=== PATIENT | female | born 1990 | race Two or more races ===

== ENCOUNTER 2016-11-11 15:01 | Inpatient (IN) | payer BC, MEDICAID ==
[2016-11-11] MEDS ORDERED: RINGERS SOLUTION,LACTATED 1,000 ML IV PRN (15:10)
[2016-11-11] MEDS ORDERED: RINGERS SOLUTION,LACTATED 1,000 ML IV ONE (15:10)
[2016-11-11 15:30] LABS: APPEARANCE,URINE SLIGHTLY-CLOUDY; BILIRUBIN,URINE NEGATIVE (NEGATIVE); GLUCOSE, URINE NEGATIVE (NEGATIVE); KETONES,URINE TRACE mg/dL (NEGATIVE); LEUKOCYTE ESTERASE,URINE NEGATIVE (NEGATIVE); NITRITE,URINE NEGATIVE (NEGATIVE); PROTEIN,URINE 30 mg/dL (NEGATIVE); URINE SPECIFIC GRAVITY 1.032
[2016-11-11 15:38] LABS: ABSOLUTE BASOPHILS # (AUTO) 0.1 10^3/uL (0.0-0.2); ABSOLUTE EOSINOPHILS # (AUTO) 0.2 10^3/uL (0.0-0.6); ABSOLUTE MONOCYTES (AUTO) 0.9 10^3/uL (0.1-1.4); ABSOLUTE NEUT (AUTO) 10.7 10^3/uL (1.7-8.2); BASOPHILS % (AUTO) 0.5 % (0-2); EOSINOPHILS % (AUTO) 1.4 % (0-6); HEMATOCRIT 34.8 % (36.0-47.0); HEMOGLOBIN 11.5 g/dL (12.0-15.5); HGB HCT DIFFERENCE -0.3; LYMPHOCYTES % (AUTO) 20.2 % (13-45); MEAN CORPUSCULAR HEMOGLOBIN 27.1 pg (27.0-33.4); MEAN CORPUSCULAR VOLUME 82 fl (80-97); MONOCYTES % (AUTO) 6.1 % (3-13); RED BLOOD COUNT 4.25 10^6/uL (3.72-5.28); RED CELL DISTRIBUTION WIDTH 15.4 % (11.5-14.0); SEGMENTED NEUTROPHILS % (AUTO) 71.8 % (42-78); WHITE BLOOD COUNT 14.9 10^3/uL (4.0-10.5)
[2016-11-11] MEDS ORDERED: CLINDAMYCIN 900 MG/D5W RTU 50 ML IV ONE (15:42)
[2016-11-11 15:45] LABS: URINE METHADONE SCREEN NEGATIVE; URINE OPIATES LOW NEGATIVE; URINE PHENCYCLIDINE SCREEN NEGATIVE
[2016-11-11 16:08] LABS: URINE BARBITURATES SCREEN NEGATIVE
[2016-11-11] MEDS ORDERED: OXYTOCIN/NORMAL SALINE 20 UNIT/1,000 ML RTUINJ ONE ×2 (16:16→17:19)
[2016-11-11] MEDS ORDERED: OXYTOCIN/NORMAL SALINE 1,000 ML IV PRN ×2 (16:27→19:58)
[2016-11-11] MEDS ORDERED: LIDOCAINE 1% INJ-PF (10 MG/ML) 30 ML SDV ONE (17:19)
[2016-11-11] MEDS ORDERED: MISOPROSTOL 0.2 MG TABLET ONE (17:19)
[2016-11-11] MEDS ORDERED: ACETAMINOPHEN WITH CODEINE #3 TABLET PO PRN ×2 (19:58)
[2016-11-11] MEDS ORDERED: MEASLES,MUMPS&RUBELLA VACC/PF 0.5 ML VIAL SUBCUT PRN (19:58)
[2016-11-11] MEDS ORDERED: BENZOCAINE/MENTHOL AEROSOL SPRAY 56 ML TOP PRN (19:58)
[2016-11-11] MEDS ORDERED: ZOLPIDEM TARTRATE 5 MG TABLET PO PRN (19:58)
[2016-11-11] MEDS ORDERED: DIPH/PERTUSS(ACELL)/TETANUS VAC/PF 0.5 ML SYR (>=10YO) IM PRN (19:58)
[2016-11-11] MEDS ORDERED: DIBUCAINE 1% OINTMENT 28 GM TP PRN (19:58)
[2016-11-11] MEDS ORDERED: IBUPROFEN 800 MG TABLET ONE (19:59)
--- NOTE | 2016-11-11 21:28 | Delivery Summary ---
Del Sum A-C Datetime Report Generated by CPN: 11/11/2016 21:28 DELIVERY PERSONNEL DELIVERY PERSONNEL: ,[id number] Delivery Doctor:: Marcia Crouch MD Labor and Delivery Nurse:: Adrienne Valverde RN Neonatal Nurse Practitioner:: Katlyn Johnson ORIENTATION AND MOBILITY SPECIALIST Nursery Nurse:: Suri Hare RN Nursery Nurse:: Monica Payne RN Production Bow Maker/ROBSON: Daksha Perez, ST MATERNAL INFORMATION Delivery Anesthesia: None Medications After Delivery: Pitocin Bolus-Please Comment; Pitocin Drip 20 Units/1000ml NSS Estimated Blood Loss (ml): 200 Maternal Complications: Premature Rupture of Membranes Other Maternal Complications: PTL LABOR SUMMARY EDC: 12/20/2016 00:00 No. Babies in Womb: 1 Attempted: No Labor Anesthesia: None LABOR INFORMATION Reason for Induction: Not Applicable Onset of Labor: 11/11/2016 14:40 Complete Dilatation: 11/11/2016 19:17 Oxytocin: Augmentation Group B Beta Strep: unknown Antibiotics # of Doses: 1 Antibiotics Time of Last Dose: 1547 Name of Antibiotic Given: Clindamycin Steroids Given: None Reason Steroids Not Administered: Not Applicable MEMBRANES Membranes Rupture Method: Spontaneous Rupture of Membranes: 11/11/2016 14:40 Length of Rupture (hr): 4.90 Amniotic Fluid Color: Clear Amniotic Fluid Amount: Large Amniotic Fluid Odor: Normal STAGES OF LABOR Stage 1 hr: 4 Stage 1 min: 37 Stage 2 hr: 0 Stage 2 min: 17 Stage 3 hr: 0 Stage 3 min: 2 Total Time in Labor hr: 4 Total Time in Labor min: 56 VAGINAL DELIVERY Laceration Extension: Second Degree Laceration Type: Perineal; Vaginal Laceration Repair Note: 2-0 chromic repair in normal fashion Sponge Count Correct: N/A CSECTION DELIVERY Primary Indication: N/A Secondary Indication: N/A CSection Incidence: N/A Labor: N/A Elective: N/A CSection Incision: N/A BABY A INFORMATION Delivery Date/Time: 11/11/2016 19:34 Method of Delivery: Vaginal Born in Route : No : N/A Forceps: N/A Vacuum Extraction: N/A Shoulder Dystocia : No PRESENTATION/POSITION BABY A Presentation: Cephalic Cephalic Presentation: Vertex Vertex Position: Left Occipital Anterior Breech Presentation: N/A PLACENTA INFORMATION BABY A Placenta Delivery Time : 11/11/2016 19:36 Placenta Method of Delivery: Spontaneous Placenta Status: Delivered SCORES BABY A Heart Rate 1 min: >100 bpm Resp Effort 1 min: Good Cry Reflex Irritability 1 min: Cough or Sneeze or Pulls Away Muscle Tone 1 min: Active Motion Color 1 min: Blue/Pale Resuscitation Effort 1 min: Tactile Stimulation SCORE 1 MIN: 8 Heart Rate 5 min: >100 bpm Resp Effort 5 min: Good Cry Reflex Irritability 5 min: Cough or Sneeze or Pulls Away Muscle Tone 5 min: Active Motion Color 5 min: Body [place], Extremities Blue Resuscitation Effort 5 min: Tactile Stimulation SCORE 5 MIN: 9 INFANT INFORMATION BABY A Gestational Age at Delivery: 34.3 Gestational Status: Late - 34- 36.6 Weeks Outcome : Liveborn Condition : Stable Infant Sex: Male IDENTIFICATION BABY A Verification Date/Time: 11/11/2016 19:49 ID Band Number: [id number] Mother's Name Verified: Yes Infant RN Verifying Infant: B Stafford, RN Additional Verifying Personnel: S Lattiebealexandraeir, Rn WEIGHT/LENGTH BABY A Infant Birthweight (gm): 2638 Weight (lb): 5 Weight (oz): 13 Length (in): 18.00 Infant Length (cm): 45.72 CORD INFORMATION BABY A No. Cord Vessels: 3 Nuchal Cord : Around Neck x1, Loose Cord Blood Taken: Yes-For Storage (Mom's Blood type +) Suction: None ASSESSMENT BABY A Skin to Skin: Yes Skin to Skin Time (min): 10 Infant Care By: D Matter, ORIENTATION AND MOBILITY SPECIALIST; A ILSA Payne; Christa Hare RN Transferred To: NICU BABY B INFORMATION : N/A SIGNATURES Signature: with User ID: [email or web address]
--- NOTE | 2016-11-11 21:52 | Admission Physical ---
Datetime Report Generated by CPN: 11/11/2016 21:52 CURRENT ADMISSION Chief Complaint: Suspected Ruptured Membranes Indication for Induction: PROM Admit Plan: Admit to Unit; Initiate Labor Induction Protocol ALLERGIES Medication Allergies: Yes Medication Allergies: Penicillins/Hives (11/11/2016) Latex: No Latex Allergies OBSTETRICAL HISTORY EDC: 12/20/2016 00:00 : 2 Para: 0 Term: 0 : 0 Ectopic: 0 Livin Cesareans: 0 VBACs: 0 Multiple Births: 0 Gestational Diabetes: Yes SEE RECORDS Alcohol: No Marijuana : No Cocaine: No Other Illicit Drugs: No Cigarettes: Current Everyday Smoker. [id number] MEDICAL HISTORY Diabetes: Yes Diabetes Type: Gestational Diabetes Hosp/Surgery: Yes Abnormal Pap Smear: Yes Medical History Comments: abnl pap, gall bladder removed 2008, LEEP x2, endocervical curettage INFECTIOUS HISTORY Chlamydia: Yes HPV: Yes Infectious History Comments: Chlamydia 2012 PHYSICAL EXAM General: Normal HEENT: Normal Neurologic: Normal Thyroid: Normal Heart: Normal Lungs: Normal Breast: Normal Back: Normal Abdomen: Normal Genitourinary Exam: Normal Extremities: Normal DTRs: Normal Pelvic Type: Adequate Vital Signs: Reviewed VAGINAL EXAM Dilatation: 1 Effacement: 90 Station: -1 MEMBRANES Pooling: Positive Membranes: Ruptured Amniotic Fluid Color: Clear FETUS A EGA: 34.3 Monitoring: External US FHR- Baseline: 130 Variability: Moderate 6-25bpm Accelerations: 10X10 Decelerations: None FHR Category: Category I Estimated Weight (gm): 2900 Presentation: Vertex Admit Comment: previous LEEP. PPROM. induce with Pitocin PLANS FOR LABOR AND DELIVERY Labor and Delivery: None Pain Management: None Feeding Preference: Breast Benefit of Breast Feed Discussed: Yes Circumcision: Yes INFORMED CONSENT Signature: with User ID: [email or web address]
[2016-11-11] MEDS ORDERED: CLINDAMYCIN 900 MG/D5W RTU 50 ML IV SCH (22:00)
[2016-11-11] MEDS: IBUPROFEN 800 MG TABLET PO SCH (23:26)
[2016-11-12] MEDS: IBUPROFEN 800 MG TABLET PO SCH ×3 (05:46→23:32)
[2016-11-12 06:26] LABS: HEMATOCRIT 32.4 % (36.0-47.0); HEMOGLOBIN 10.6 g/dL (12.0-15.5); HGB HCT DIFFERENCE -0.6; MEAN CORPUSCULAR HEMOGLOBIN 26.8 pg (27.0-33.4); MEAN CORPUSCULAR HGB CONC 32.7 g/dL (32.0-36.0); MEAN CORPUSCULAR VOLUME 82 fl (80-97); RED BLOOD COUNT 3.95 10^6/uL (3.72-5.28); RED CELL DISTRIBUTION WIDTH 15.4 % (11.5-14.0); WHITE BLOOD COUNT 18.6 10^3/uL (4.0-10.5)
--- NOTE | 2016-11-12 08:45 | PDOC PROGRESS REPORT ---
Subjective-OB Subjective: Post Delivery Day: 1 26 year old. Denies any needs at this time, states lochia is stable, pain well controlled, voiding without difficulty. Physical Exam (OB) Vital Signs: Temp Pulse Resp BP Pulse Ox 98.0 F 85 18 109/70 100 11/12/16 08:13 11/12/16 08:13 11/12/16 08:13 11/12/16 08:13 11/12/16 08:13 Intake & Output 11/11/16 11/12/16 11/13/16 06:59 06:59 06:59 Weight 87.35 kg - PIH/Pre-Eclampsia Clonus: Negative Headache: Absent Epigastric Pain: No Visual Changes: No - Lochia Lochia Amount: Small 10-25 ml Lochia Color: Rubra/Red - Abdomen Description: Soft, Round Fundal Description: Firm Fundal Height: u/u - u/2 Objective-Diagnostic Laboratory: 11/12/16 06:05 11/11/16 11/11/16 11/11/16 15:10 15:21 15:21 WBC 14.9 H RBC 4.25 Hgb 11.5 L Hct 34.8 L MCV 82 MCH 27.1 MCHC 33.0 RDW 15.4 H Plt Count 235 Seg Neutrophils % 71.8 Lymphocytes % 20.2 Monocytes % 6.1 Eosinophils % 1.4 Basophils % 0.5 Absolute Neutrophils 10.7 H Absolute Lymphocytes 3.0 Absolute Monocytes 0.9 Absolute Eosinophils 0.2 Absolute Basophils 0.1 Urine Color YELLOW Urine Appearance SLIGHTLY-CLOUDY Urine pH 5.0 Ur Specific [place] 1.032 Urine Protein 30 H Urine Glucose (UA) NEGATIVE Urine Ketones TRACE H Urine Blood NEGATIVE Urine Nitrite NEGATIVE Ur Leukocyte Esterase NEGATIVE Urine WBC (Auto) 2 Urine RBC (Auto) 2 Blood Type A POSITIVE Antibody Screen NEGATIVE 11/12/16 06:05 WBC 18.6 H RBC 3.95 Hgb 10.6 L Hct 32.4 L MCV 82 MCH 26.8 L MCHC 32.7 RDW 15.4 H Plt Count 205 Seg Neutrophils % Lymphocytes % Monocytes % Eosinophils % Basophils % Absolute Neutrophils Absolute Lymphocytes Absolute Monocytes Absolute Eosinophils Absolute Basophils Urine Color Urine Appearance Urine pH Ur Specific [place] Urine Protein Urine Glucose (UA) Urine Ketones Urine Blood Urine Nitrite Ur Leukocyte Esterase Urine WBC (Auto) Urine RBC (Auto) Blood Type Antibody Screen Assessment and Plan(PN) - Assessment and Plan (1) Vaginal delivery Is this a current diagnosis for this admission?: Yes (2) Type 2 diabetes mellitus Qualifiers: Diabetes mellitus complication status: without complication Diabetes mellitus middle or intermediate school principal insulin use: unspecified mcfp insulin use status Qualified Code(s): E11.9 - Type 2 diabetes mellitus without complications Is this a current diagnosis for this admission?: YesPlan: metformin - Time Spent with Patient Time with patient: Less than 15 minutes Critical Time spent with patient: Less than 15 minutes Medications reviewed and adjusted accordingly: Yes - Disposition Anticipated Discharge: Home Within: within 24 hours
[2016-11-12] MEDS: FERROUS SULFATE 325 MG TABLET PO SCH ×2 (10:44→17:44)
[2016-11-12] MEDS: SENNOSIDES/DOCUSATE 8.6-50 MG 1 EACH TABLET PO SCH (10:44)
[2016-11-12] MEDS: PRENATAL VITAMIN W-O CA NO5/FE FUMARATE/FA CAPSULE PO SCH (10:44)
[2016-11-12] MEDS: DOCUSATE SODIUM 100 MG CAPSULE PO SCH ×2 (10:44→17:44)
[2016-11-12] MEDS: METFORMIN HCL 500 MG TABLET PO SCH (10:53)
[2016-11-13] MEDS: IBUPROFEN 800 MG TABLET PO SCH ×2 (06:32→13:39)
--- NOTE | 2016-11-13 09:26 | PDOC PROGRESS REPORT ---
Subjective-OB Subjective: Post Delivery Day: 26 year old. Denies any needs at this time Doing well, OOB in room, breast feeding, diet taken well, scant bleeding, baby in NICU, tearful she has to go home and leave baby, hsb at BS Physical Exam (OB) Vital Signs: Temp Pulse Resp BP Pulse Ox 97.6 F 84 18 123/77 99 11/12/16 19:47 11/12/16 19:47 11/12/16 19:47 11/12/16 19:47 11/12/16 19:47 Intake & Output 11/12/16 11/13/16 11/14/16 06:59 06:59 06:59 Intake Total 600 Balance 600 Weight 87.35 kg - PIH/Pre-Eclampsia Clonus: Negative Headache: Absent Epigastric Pain: No Visual Changes: No - Lochia Lochia Amount: Scant < 10 ml Lochia Color: Rubra/Red - Abdomen Description: Firm Hernia Present: No Fundal Description: Firm Fundal Height: u/3 - u/4 Objective-Diagnostic Laboratory: 11/12/16 06:05 Assessment and Plan(PN) - Assessment and Plan (1) delivery Is this a current diagnosis for this admission?: Yes (2) Vaginal delivery Is this a current diagnosis for this admission?: Yes (3) Type 2 diabetes mellitus Qualifiers: Diabetes mellitus complication status: without complication Diabetes mellitus fci insulin use: unspecified manager terminal insulin use status Qualified Code(s): E11.9 - Type 2 diabetes mellitus without complications Is this a current diagnosis for this admission?: Yes - Time Spent with Patient Time with patient: Less than 15 minutes Medications reviewed and adjusted accordingly: Yes - Disposition Anticipated Discharge: Home Within: Other - home today
--- NOTE | 2016-11-13 09:31 | PDOC DISCHARGE SUMMARY ---
Final Diagnosis Discharge Date: 11/13/16 - Final Diagnosis (1) delivery Is this a current diagnosis for this admission?: Yes (2) Vaginal delivery Is this a current diagnosis for this admission?: Yes Discharge Data - Discharge Medication Home Medications: Glyburide [Diabeta 2.5 Mg Tablet] 2.5 mg PO BID 11/11/16 Metformin HCl 500 mg PO DAILY 11/11/16 Nitrofurantoin Monohyd/M-Cryst [Macrobid 100 mg Capsule] 100 mg PO DAILY Vit/Iron Fumarate/FA [ Tablet] 1 each PO DAILY 11/11/16 Gestational Age: 34.3 Reason(s) for Admission: Onset of Labor, PROM, Labor, Medical Complications Procedures: NST, Ultrasound Intrapartum Procedure(s): Spontaneous Vaginal Delivery Complication(s): Laceration-Vaginal, Laceration-Perineal Laceration-Degree: 2nd - Data Baby 1 Male at 1 minute: 8 at 5 minutes: 9 Weight: 2.637 kg Home with Mother: No Complications: Yes - NICU - Diagnosis Test Laboratory: Temp Pulse Resp BP Pulse Ox 97.6 F 84 18 123/77 99 11/12/16 19:47 11/12/16 19:47 11/12/16 19:47 11/12/16 19:47 11/12/16 19:47 11/11/16 11/11/16 11/12/16 15:10 15:21 06:05 RBC 4.25 3.95 Hgb 11.5 L 10.6 L Hct 34.8 L 32.4 L Urine Opiates Screen NEGATIVE - Discharge information/Instructions Discharge Activity: Activity As Tolerated, No Lifting Over 10 Pounds, No Lifting /Push/Pulling, Pelvic Rest Discharge Diet: As Tolerated, Regular Disposition: HOME, SELF-CARE Follow up with: [facility] in: 4, Weeks
[2016-11-13 09:34] VITALS: BP 136/87
[2016-11-13] MEDS: SENNOSIDES/DOCUSATE 8.6-50 MG 1 EACH TABLET PO SCH (10:09)
[2016-11-13] MEDS: PRENATAL VITAMIN W-O CA NO5/FE FUMARATE/FA CAPSULE PO SCH (10:10)
[2016-11-13] MEDS: DOCUSATE SODIUM 100 MG CAPSULE PO SCH ×2 (10:11→18:11)
[2016-11-13] MEDS: FERROUS SULFATE 325 MG TABLET PO SCH ×2 (10:12→18:22)
[2016-11-13] MEDS: METFORMIN HCL 500 MG TABLET PO SCH (10:20)
== END 2016-11-13 18:25 | disposition home or self-care (01) | DRG 775 ==
LOC: LC 15:01 → LR 15:26 → 2S 21:50
PROVIDERS: ADMIT Obstetrics & Gynecology; ATTEND Obstetrics & Gynecology
PROC: 10E0XZZ Delivery of Products of Conception, External Approach (ICD-10-PCS; principal; 2016-11-11)
PROC: 0KQM0ZZ Repair Perineum Muscle, Open Approach (ICD-10-PCS; 2016-11-11)
DX: O70.1 Second degree perineal laceration during delivery (principal); Z37.0 Single live birth; Z3A.34 34 weeks gestation of pregnancy; O60.14X0 Preterm labor third trimester with preterm delivery third trimester, not applicable or unspecified; O24.429 Gestational diabetes mellitus in childbirth, unspecified control; O99.334 Smoking (tobacco) complicating childbirth; F17.210 Nicotine dependence, cigarettes, uncomplicated; Z88.0 Allergy status to penicillin
CPT/HCPCS: 36415; 80307; 81001; 82962; 85025; 85027; 86592; 86850; 86900; 86901; 88307; J2590; J3490

== ENCOUNTER 2016-11-15 15:44 | Emergency (ER) | payer BC, MEDICAID ==
--- NOTE | 2016-11-15 16:18 | ER Document Report ---
ED Medical Screen (RME) - General Chief Complaint: Leg Pain Stated Complaint: LEG PAIN Time Seen by Provider: 11/15/16 16:08 Mode of Arrival: Ambulatory Information source: Patient TRAVEL OUTSIDE OF THE [place] IN LAST 30 DAYS: No - HPI Onset: Other - 2 DAYS AGO Onset/Duration: Gradual Quality of pain: Dull, Pressure Severity: Mild Associated Symptoms: Leg swelling Exacerbated by: Movement, Walking Relieved by: Denies Similar symptoms previously: No Recently seen / treated by doctor: Yes - OB, TODAY, REFERRED FOR DOPPLER - Related Data Allergies/Adverse Reactions: Penicillins Allergy (Verified 11/15/16 15:47) Hives Past Medical History - General Information source: Patient - Social History Lives with: Spouse/Significant other Family history: Other - NO H/O DVT/PE - Past Medical History Cardiac Medical History: Reports: None Denies: Hx DVT, Hx Pulmonary Embolism Pulmonary Medical History: Reports: None EENT Medical History: Reports: None Neurological Medical History: Reports: None Endocrine Medical History: Reports: None Renal/ Medical History: Reports: None. Denies: Hx Peritoneal Dialysis Malignancy Medical History: Reports: None GI Medical History: Reports: None Musculoskeltal Medical History: Reports None Surgical Hx: Negative Review of Systems - Review of Systems Constitutional: No symptoms reported EENT: No symptoms reported Cardiovascular: Edema. denies: Dyspnea, Syncope, Dizziness Respiratory: No symptoms reported. denies: Short of breath Gastrointestinal: No symptoms reported Genitourinary: See HPI Female Genitourinary: denies: - 4 d POST- Musculoskeletal: See HPI Physical Exam - Vital signs Vitals: Temp Pulse Resp BP Pulse Ox 98.2 F 86 18 127/85 H 97 11/15/16 15:47 11/15/16 15:47 11/15/16 15:47 11/15/16 15:47 11/15/16 15:47 Interpretation: Normal - General General appearance: Appears well, Alert In distress: None - Respiratory Respiratory status: No respiratory distress Breath sounds: Normal - Cardiovascular Rhythm: Regular - Extremities General upper extremity: Normal inspection General lower extremity: Edema - 1+ BILAT.. No: Normal inspection - Neurological Neuro grossly intact: Yes - Psychological Associated symptoms: Normal affect, Normal mood - Skin Skin Temperature: Warm Skin Moisture: Dry Skin Color: Normal Skin Turgor: Elastic Course - Vital Signs Vital signs: Temp Pulse Resp BP Pulse Ox 98.2 F 86 18 127/85 H 97 11/15/16 15:47 11/15/16 15:47 11/15/16 15:47 11/15/16 15:47 11/15/16 15:47
--- NOTE | 2016-11-15 16:37 | ER Document Report ---
ED Extremity Problem, Lower - General Chief Complaint: Leg Pain Stated Complaint: LEG PAIN Time Seen by Provider: 11/15/16 16:08 Mode of Arrival: Ambulatory Information source: Patient TRAVEL OUTSIDE OF THE [place] IN LAST 30 DAYS: No - HPI Patient complains to provider of: Pain, Swelling Location: Leg Occurred: Yesterday Onset/Duration: Gradual Quality of pain: Fullness Severity: Moderate Pain Level: 3 Recent injury: No Exacerbated by: Nothing Relieved by: Nothing Notes: 26-year-old female who is 4 days status post , sent to the emergency room by NET APPLICATION ARCHITECT for complaints of right lower extremity swelling that has been present for the past few days, she denies chest pain or shortness of breath, she was sent over to get a lower extremity venous Doppler to rule out DVT, patient does report swelling, pain, denies injury - Related Data Allergies/Adverse Reactions: Penicillins Allergy (Verified 11/15/16 15:47) Hives Past Medical History - General Information source: Patient - Social History Smoking Status: Former Smoker Chew tobacco use (# tins/day): No Frequency of alcohol use: None Drug Abuse: None Lives with: Spouse/Significant other Family History: Reviewed & Not Pertinent Patient has suicidal ideation: No Patient has homicidal ideation: No - Past Medical History Cardiac Medical History: Reports: None Denies: Hx DVT, Hx Pulmonary Embolism Pulmonary Medical History: Reports: None EENT Medical History: Reports: None Neurological Medical History: Reports: None Endocrine Medical History: Reports: None Renal/ Medical History: Reports: None. Denies: Hx Peritoneal Dialysis Malignancy Medical History: Reports: None GI Medical History: Reports: None Musculoskeltal Medical History: Reports None Surgical Hx: Negative - Immunizations Hx Diphtheria, Pertussis, Tetanus Vaccination: Yes Review of Systems - Review of Systems Constitutional: No symptoms reported EENT: No symptoms reported Cardiovascular: No symptoms reported Respiratory: No symptoms reported Gastrointestinal: No symptoms reported Genitourinary: No symptoms reported Female Genitourinary: No symptoms reported Musculoskeletal: See HPI Skin: No symptoms reported Hematologic/Lymphatic: No symptoms reported Neurological/Psychological: No symptoms reported -: Yes All other systems reviewed and negative Physical Exam - Vital signs Vitals: Temp Pulse Resp BP Pulse Ox 98.2 F 86 18 127/85 H 97 11/15/16 15:47 11/15/16 15:47 11/15/16 15:47 11/15/16 15:47 11/15/16 15:47 - Notes Notes: - General General appearance: Appears well, Alert In distress: None - HEENT Head: Normocephalic, Atraumatic Eyes: Normal Conjunctiva: Normal Extraocular movements intact: Yes Eyelashes: Normal Pupils: PERRL - Respiratory Respiratory status: No respiratory distress - Cardiovascular Rhythm: Regular - Abdominal Inspection: Normal - Back Back: Normal - Extremities General upper extremity: Normal inspection General lower extremity: Right lower leg with swelling, tenderness, fullness, edema, distal sensation and motor is intact, 2+ DP pulses, brisk capillary refill - Neurological Neuro grossly intact: Yes Orientation: AAOx4 [place] Coma Scale Eye Opening: Spontaneous [place] Coma Scale Verbal: Oriented [place] Coma Scale Motor: Obeys Commands [place] Coma Scale Total: 15 - Psychological Associated symptoms: Normal affect, Normal mood - Skin Skin Temperature: Warm Skin Moisture: Dry Skin Color: Normal Course - Re-evaluation Re-evalutation: 11/15/16 17:19 Imaging findings discussed with patient at bedside which are unremarkable, no evidence of DVT, she was advised to elevate extremities, follow-up with NET APPLICATION ARCHITECT in 2-3 days or return if symptoms worsen, patient acknowledges understanding and agreement with this plan - Vital Signs Vital signs: Temp Pulse Resp BP Pulse Ox 98.2 F 86 18 127/85 H 97 11/15/16 15:47 11/15/16 15:47 11/15/16 15:47 11/15/16 15:47 11/15/16 15:47 - Diagnostic Test Radiology reviewed: Image reviewed, Reports reviewed Discharge - Discharge Clinical Impression: Right leg swelling Condition: Stable Disposition: HOME, SELF-CARE Instructions: Leg Pain Nonspecific ([facility]), Possible Evolving Leg DVT ([facility]) Additional Instructions: Follow up with your primary care provider in one to 2 days. Return to the emergency room immediately if symptoms worsen or any additional concerns.
[2016-11-15 17:27] VITALS: BP 125/76
--- NOTE | 2016-11-15 17:42 | RADIOLOGY REPORT (SQ) ---
EXAM DESCRIPTION: VENOUS UNILATERAL LOWER COMPLETED DATE/TIME: 11/15/2016 5:31 pm REASON FOR STUDY: EDEMA R. LE 4 DAYS POST- COMPARISON: None. TECHNIQUE: Dynamic and static owens scale and color images acquired of the right leg venous system. Selected spectral images acquired with additional compression and augmentation maneuvers. The contral ateral common femoral vein and saphenofemoral junction were also imaged. Images stored on PACS. LIMITATIONS: None. FINDINGS: COMMON FEMORAL: Normal phasicity, compression and augmentation. No visualized echogenic ma terial on owens scale. No defects on color images. FEMORAL: Normal compression and augmentation. No visualized echogenic material on owens scale. No defe cts on color images. POPLITEAL: Normal compression, augmentation. No visualized echogenic material on owens scale. No defec ts on color images. CALF VESSELS: Normal compression, augmentation. No visualized echogenic material on owens scale. No de fects on color images. GSV and SSV: Normal compression, augmentation. No visualized echogenic material on owens scale. No def ects on color images. ANY DEEP VENOUS INSUFFICIENCY: Not evaluated. ANY EVIDENCE OF POPLITEAL CYST: No. OTHER: No other significant finding. CONTRALATERAL COMMON FEMORAL VEIN AND SAPHENOFEMORAL JUNCTION: Normal phasicity, compression and augmentation. No visualized echogenic material on owens scale. No de fects on color images. IMPRESSION: NO EVIDENCE OF DVT OR SVT IN THE RIGHT LEG. TECHNICAL DOCUMENTATION: JOB ID: [id number] [employer]- All Rights Reserved
== END 2016-11-15 17:26 | disposition home or self-care (01) ==
LOC: ER 15:44
DX: M79.89 Other specified soft tissue disorders (principal); M79.604 Pain in right leg; Z87.891 Personal history of nicotine dependence
CPT/HCPCS: 93971; 99283